=== PATIENT | male | born 1955 | race Caucasian/White ===

== ENCOUNTER → 2022-10-17 | Outpatient (CLI) | payer OTHER ==
[2022-10-17 22:38] LABS: Basophils # (A) 0.02 X 10*3/uL (0.00-0.10); Basophils % (A) 0.4 %; Eosinophils # (A) 0.06 X 10*3/uL (0.04-0.35); Eosinophils % (A) 1.1 %; HCT 46.4 % (39.6-50.0); HGB 15.6 d/dL (12.0-15.0); Lymphocytes # (A) 1.82 X 10*3/uL (0.90-5.00); Lymphocytes % (A) 32.4 %; MCHC 33.6 d/dL (32.0-37.0); MCV 92.1 FL (80.0-97.0); Mean Platelet Volume 10.1 FL (9.5-12.2); Monocytes # (A) 0.56 X 10*3/uL (0.20-1.00); NRBC Per 100 WBC 0 X 10*3/uL (0.00-0.01); Neutrophils # (A) 3.15 X 10*3/uL (1.80-7.70); Neutrophils % (A) 55.9 %; Platelet Count 260 X 10*3/uL (140-440); RBC 5.04 X 10*6/uL (4.40-5.60); RDW 13.1 % (11.5-14.5); WBC 5.62 X 10*3/uL (4.50-10.00)
== END | disposition home or self-care (01) ==
LOC: LABWHC1 13:28
PROVIDERS: ATTEND Otolaryngology
DX: K11.7 Disturbances of salivary secretion (principal); R43.2 Parageusia
CPT/HCPCS: 36415; 82607; 85025; 86235

== ENCOUNTER → 2022-10-27 | Outpatient (CLI) | payer MEDICARE, OTHER ==
--- NOTE | 2022-10-27 11:13 | MR ---
EXAMINATION TYPE: MR brain wo/w con DATE OF EXAM: 10/27/2022 COMPARISON: HISTORY: Tongue numbness/ sensitivity. TECHNIQUE: Multiplanar, multisequence images of the brain and brainstem is performed without and with IV contras t, utilizing 10 mL intravenous Gadavist . FINDINGS: Diffusion weighted images demonstrate no evidence of a recent infarct or other diffusion ab normality. There is no extra-axial fluid collection or significant white matter signal abnormality. The ventricular system and cisternal spaces are normal in size and appearance. The brain volume is age appropriate. Midline structures demonstrate normal morphology. The craniocervical junction appears within normal limits. Post contrast images demonstrate a venous angioma on the left parietal lobe. The dural venou s sinuses appear patent. Changes of chronic sinusitis and right mastoiditis. And the globes are intac t. IMPRESSION: 1. No acute intracranial process. 2. Incidental note made of a small venous angioma left parietal lobe.
== END | disposition home or self-care (01) ==
LOC: RADMRIMAIN 09:32
PROVIDERS: ATTEND Otolaryngology
DX: Q28.3 Other malformations of cerebral vessels (principal); R43.2 Parageusia
CPT/HCPCS: 70553; A9585